=== PATIENT | female | born 1975 | race Caucasian/White ===

== ENCOUNTER 2018-06-11 22:59 | Emergency (ER) | payer MEDICAID ==
[~2018-06-11] VITALS: Ht 165.1 cm; Wt 56.7 kg
[2018-06-11 23:11] VITALS: Ht 165.1 cm; Wt 56.7 kg
[2018-06-12 05:08] VITALS: BP 126/93
== END 2018-06-12 05:58 | disposition home or self-care (01) ==
LOC: ED 22:59
DX: S01.81XA Laceration without foreign body of other part of head, initial encounter (principal); F41.9 Anxiety disorder, unspecified; Y04.8XXA Assault by other bodily force, initial encounter; Y93.89 Activity, other specified; Y92.89 Other specified places as the place of occurrence of the external cause; Y99.8 Other external cause status
CPT/HCPCS: J2060

== ENCOUNTER 2018-06-13 12:05 | Emergency (ER) | payer MEDICAID ==
[~2018-06-13] VITALS: Ht 162.6 cm; Wt 55.8 kg
[2018-06-13 12:07] VITALS: Ht 162.6 cm; Wt 55.8 kg
[2018-06-13 12:51] VITALS: BP 154/78
== END 2018-06-13 12:51 | disposition home or self-care (01) ==
LOC: ED 12:05
DX: K13.0 Diseases of lips (principal)
CPT/HCPCS: 90715

== ENCOUNTER 2018-06-15 18:20 | Emergency (ER) | payer MEDICAID ==
[~2018-06-15] VITALS: Ht 165.1 cm; Wt 65.8 kg
[2018-06-15 18:38] VITALS: Ht 165.1 cm; Wt 65.8 kg
[2018-06-15 19:07] LABS: BASOPHIL % 0.3 % (0-2); PLATELET COUNT 278 x10^3mcL (130-400)
[2018-06-15 19:11] LABS: RED CELL DISTRIBUTION WIDTH 14.6 % (11.5-14.5)
[2018-06-15 19:29] LABS: ALBUMIN 3.8 g/dL (3.4-5.0); ALKALINE PHOSPHATASE 95 U/L (46-116); ALT/SGPT 74 U/L (14-59); AST/SGOT 85 U/L (15-37); BILIRUBIN TOTAL 0.49 mg/dL (0.20-1.00); CARBON DIOXIDE 25.3 mmol/L (21-32); CHLORIDE SERUM 102 mmol/L (98-107); CREATININE SERUM 0.7 mg/dL (0.6-1.0); GFR1 > 60 mL/min; GLUCOSE SERUM 109 mg/dL (74-106); SODIUM SERUM 138 mmol/L (136-145)
[2018-06-16 03:30] LABS: AMPHETAMINE QUAL UR POSITIVE (See below)
[2018-06-16 17:07] LABS: UA SPECIFIC GRAVITY <=1.005 (1.005-1.035); microscopic required? YES; urine erythrocyte 2+ (NEGATIVE)
[2018-06-16 17:33] VITALS: BP 100/80
[2018-06-17 01:18] LABS: MAGNESIUM 1.7 mg/dL (1.8-2.4); PHOSPHOROUS 3.7 mg/dL (2.5-4.9)
[2018-06-17 01:19] LABS: CHOLESTEROL/HDL RATIO 1.8
[2018-06-17 01:27] LABS: FREE T4 1.17 ng/dL (0.76-1.46); FREE THYROXINE INDEX 2.9 ug/dL (1.4-4.5); T4(THYROXINE) 8.6 ug/dL (4.7-13.3)
[2018-06-17 08:21] LABS: T3 TOTAL 1.74 ng/mL
== END 2018-06-16 16:50 | disposition left against medical advice (07) ==
LOC: ED 18:20 → MU 06-16 15:55 → ED 06-16 15:55
PROVIDERS: Emergency Medicine; Family Medicine
DX: F29 Unspecified psychosis not due to a substance or known physiological condition (principal); E87.6 Hypokalemia
CPT/HCPCS: 36415; 82962; 83880; 84439; G0480; Q0092

== ENCOUNTER 2018-06-16 17:47 | Inpatient (IN) | payer MEDICAID ==
[~2018-06-16] VITALS: Ht 165.1 cm; Wt 57.2 kg
[2018-06-16 18:00] VITALS: Ht 165.1 cm; Wt 57.2 kg
[2018-06-16 19:29] VITALS: BP 93/60
[2018-06-16 21:12] VITALS: BP 93/60
[2018-06-17 06:23] VITALS: BP 101/56
[2018-06-17 08:00] VITALS: BP 93/55
[2018-06-17 17:46] VITALS: BP 90/45
[2018-06-17 20:57] VITALS: BP 90/48
[2018-06-18 05:19] VITALS: BP 98/50
[2018-06-18 06:16] LABS: BASOPHIL % 0.7 % (0-2); PLATELET COUNT 215 x10^3mcL (130-400)
[2018-06-18 06:38] LABS: RED CELL DISTRIBUTION WIDTH 14.7 % (11.5-14.5)
[2018-06-18 07:02] LABS: CALCIUM 8.1 mg/dL (8.5-10.1); CREATININE SERUM 0.6 mg/dL (0.6-1.0); GFR1 > 60 mL/min; GLUCOSE SERUM 98 mg/dL (74-106); MAGNESIUM 1.6 mg/dL (1.8-2.4); PHOSPHOROUS 3.2 mg/dL (2.5-4.9)
[2018-06-18 07:47] LABS: CARBON DIOXIDE 29.5 mmol/L (21-32); CHLORIDE SERUM 104 mmol/L (98-107); POTASSIUM SERUM 3.7 mmol/L (3.5-5.1); SODIUM SERUM 138 mmol/L (136-145)
[2018-06-18 09:06] VITALS: BP 95/61
[2018-06-18 13:23] VITALS: BP 98/60
[2018-06-18 16:53] VITALS: BP 91/60
[2018-06-18 20:17] VITALS: BP 91/57
[2018-06-19 04:18] VITALS: BP 93/56
[2018-06-19 08:21] VITALS: BP 90/46
[2018-06-19] MEDS ORDERED: ZYPREXA ZYDIS5 MG PO (12:12)
[2018-06-19 12:55] VITALS: BP 93/50
[2018-06-19 13:46] VITALS: BP 93/50
== END 2018-06-19 15:34 | disposition home or self-care (01) | DRG 52 ==
LOC: ED 17:47 → MU 18:26 → DU 19:45 → MU 06-17 08:32
PROVIDERS: Family Medicine
DX: G92 Toxic encephalopathy (principal); F15.20 Other stimulant dependence, uncomplicated; T43.621A Poisoning by amphetamines, accidental (unintentional), initial encounter; F10.10 Alcohol abuse, uncomplicated; R74.0 Nonspecific elevation of levels of transaminase and lactic acid dehydrogenase [LDH]; B18.2 Chronic viral hepatitis C; Z59.0 Homelessness; Z68.1 Body mass index [BMI] 19.9 or less, adult; F17.210 Nicotine dependence, cigarettes, uncomplicated; Y92.89 Other specified places as the place of occurrence of the external cause
CPT/HCPCS: 90658

== ENCOUNTER 2018-06-21 17:13 | Emergency (ER) | payer MEDICAID ==
[~2018-06-21] VITALS: Ht 162.6 cm; Wt 48.1 kg
[~2018-06-21 17:13] MED LIST: ZYPREXA ZYDIS5 MG PO
[2018-06-21 17:18] VITALS: Ht 162.6 cm; Wt 48.1 kg
[2018-06-21 17:51] LABS: BASOPHIL % 1.1 % (0-2); PLATELET COUNT 265 x10^3mcL (130-400)
[2018-06-21 17:52] LABS: RED CELL DISTRIBUTION WIDTH 14.7 % (11.5-14.5)
[2018-06-21 18:00] LABS: CALCIUM 8.9 mg/dL (8.5-10.1); CARBON DIOXIDE 28.3 mmol/L (21-32); CHLORIDE SERUM 102 mmol/L (98-107); CREATININE SERUM 0.9 mg/dL (0.6-1.0); GFR1 > 60 mL/min; GLUCOSE SERUM 106 mg/dL (74-106); POTASSIUM SERUM 3.9 mmol/L (3.5-5.1); SODIUM SERUM 139 mmol/L (136-145)
[2018-06-21 18:04] LABS: ALBUMIN 3.5 g/dL (3.4-5.0); ALKALINE PHOSPHATASE 76 U/L (46-116); ALT/SGPT 50 U/L (14-59); AST/SGOT 54 U/L (15-37); BILIRUBIN TOTAL 0.3 mg/dL (0.20-1.00); TOTAL PROTEIN, SERUM 7.6 g/dL (6.4-8.2)
[2018-06-21 20:38] LABS: AMPHETAMINE QUAL UR POSITIVE (See below)
[2018-06-21 21:30] VITALS: BP 85/58
== END 2018-06-21 21:30 | disposition home or self-care (01) ==
LOC: ED 17:13
PROVIDERS: Emergency Medicine
DX: F10.129 Alcohol abuse with intoxication, unspecified (principal); Z59.0 Homelessness; M79.673 Pain in unspecified foot
CPT/HCPCS: 36415; G0480